=== PATIENT | female | born 2000 | race Caucasian/White ===

== ENCOUNTER 2021-01-24 10:37 | Outpatient (REF) | payer BC, SELFPAY ==
--- OUTSIDE RECORDS SUMMARY | 2021-01-24 10:55 | XMS_ITS ---
:[address] [facility] [place] Address [address] [place] [address]- Care Team Providers Name Role Phone Elder Unavailable Unavailable Foote Unavailable Unavailable Encounter 09/09/20 - 09/09/20 [facility] [place] [address] [place] [address]- Attending Physician: KARLA Cobos Admitting Physician: KARLA Cobos Referring Physician: [id number] -SELF-REFERRED, Problem List Condition Effective Dates Status Health Status Informant Bloating(Confirmed) Active Anxiety(Confirmed) Active Lactose intolerance(Confirmed) Active Well adolescent visit(Confirmed) Active Allergies, Adverse Reactions, Alerts Substance Reaction Severity Status penicillin Active lactose intolerance Active Medications imiquimod 5% topical cream 1 appl, Apply to warts qhs and cover with a bandaid, TOP, Nightly, X 16 weeks, # 24 ea, 1 Refill(s),Pharmacy: [facility], Rx or Hx Med, 160, 06/26/20 10:29:00 EST, cm, Height/Length Dosing, 55.7, 06/26/20 10:29:00 EST, kg, Weight Dosing Start Date: 06/26/20 Stop Date: 02/05/21 Status: OrderedLexapro 10 mg oral tablet mg tab, PO, Daily, 0 Refill(s), Rx or Hx Med Start Date: 06/26/20 Status: Orderedmultivitamin Daily, 0 Refill(s), Rx or Hx Med Start Date: 06/26/20 Status: OrderedNasonex spray, Inhale-nasal, Daily, 0 Refill(s), Rx or Hx Med Start Date: 12/16/16 Stop Date: 01/06/17 Status: Discontinued Immunizations Given and Recorded Vaccine Date Status Refusal Reason human papillomavirus vaccine 12/16/16 Given human papillomavirus vaccine 09/15/15 Recorded meningococcal conjugate vaccine 09/15/15 Recorded meningococcal conjugate vaccine 08/19/11 Recorded hepatitis A pediatric vaccine 12/15/12 Recorded hepatitis A pediatric vaccine 08/19/11 Recorded tetanus/diphth/pertuss (Tdap) adult/adol 08/19/11 Recorde d diphtheria/pertussis, acel/tetanus ped 09/26/03 Recorded diphtheria/pertussis, acel/tetanus ped 12/02/00 Recorded diphtheria/pertussis, acel/tetanus ped1 99 Recorded diphtheria/pertussis, acel/tetanus ped 99 Recorded diphtheria/pertussis, acel/tetanus ped 99 Recorded poliovirus vaccine, inactivated 09/26/03 Recorded poliovirus vaccine, inactivated2 12/02/00 Recorded poliovirus vaccine, inactivated 99 Recorded poliovirus vaccine, inactivated 99 Recorded poliovirus vaccine, inactivated 99 Recorded measles/mumps/rubella virus vaccine 09/26/03 Recorded measles/mumps/rubella virus vaccine 09/12/00 Recorded haemophilus b conj (PRP-OMP) vaccine 05/01/03 Recorded haemophilus b conj (PRP-OMP) vaccine 99 Recorded haemophilus b conj (PRP-OMP) vaccine 99 Recorded haemophilus b conj (PRP-OMP) vaccine 99 Recorded pneumococcal 13-valent vaccine 09/12/01 Recorded varicella virus vaccine 09/12/00 Recorded hepatitis B pediatric vaccine 02/03/00 Recorded hepatitis B pediatric vaccine 99 Recorded hepatitis B pediatric vaccine 99 Recorded 1Result Comment: [01/03/2018 Uncharted] [id number] Comment: [01/03/2018 Uncharted] duplicate Procedures Procedure Date Related Diagnosis Body Site Status ingrown toe nail removal 03/27/20 Com pleted Social History Social History Type Response Tobacco/Nicotine Use: Denies. Smoking Status Never smoker Sex
--- OUTSIDE RECORDS SUMMARY | 2021-01-24 10:55 | XMS_ITS ---
:2000 Author Organization [facility] [place] Address [address] [place] - Care Team Providers Name Role Phone Elder Unavailable Unavailable Foote Unavailable Unavailable Encounter 11/19/20 - 11/19/20 [facility] [place] [address] [place] [address]- Attending Physician: Kristina Mahmood MD Admitting Physician: Kristina Mahmood MD Referring Physician: [id number] -SELF-REFERRED, Problem List Condition Effective Dates Status [...] vaccine 99 Recorded 1Result Comment: [01/03/2018 Uncharted] [id number] Comment: [01/03/2018 Uncharted] duplicate Procedures Procedure Date Related Diagnosis Body Site Status ingrown toe nail removal 03/27/20 Com pleted Social History Social History Type Response Tobacco/Nicotine Use: Denies. Smoking Status Never smoker Sex
--- OUTSIDE RECORDS SUMMARY | 2021-01-24 10:55 | XMS_ITS | Clinical Summary ---
:2000 Author Organization [facility] [place] [address] Care Team Providers Name Role Phone Unavailable Primary Care Provider Unavailable Social History Tobacco Use Types Packs/Day Years Used Date Never Assessed Sex Assigned at Date Recorded Not on file Plan of Treatment Not on file
--- OUTSIDE RECORDS SUMMARY | 2021-01-24 10:55 | XMS_ITS ---
:2000 Author Care Team Providers Name Role Phone Luz Montes Primary Care Provider Unavailable Allergies Code Code System Name Reaction Severity Status Onset Dairy ? ? Active ? Penicillins Garcia-Murphy ? Active ? on Syndrome Notes: Dairy (Active) Medications Name Status Start Date Stop Date ? ? azithromycin 1 gram oral packet Active ? Not available Take 1 g by oral route. azithromycin 500 mg tablet Active ? Not a vailable doxycycline hyclate 100 mg capsule Active ? Not available escitalopram 10 mg tablet Active ? Not av ailable Fluzone Quad (PF) 60 mcg (15 mcg x 4)/0.5 mL IM syring e Active ? Not available PHARMACY ADMINISTERED Gianvi (28) 3 mg-0.02 mg tablet Active ? Not available imiquimod 5 % topical cream packet Active ? Not available Lexapro Active ? Not available Liletta 20.1 mcg/24 hrs (6 yrs) 52 mg intrauterine device Active ? Not available Take by intrauterine route. mupirocin 2 % topical ointment Active ? N ot available Notes: Liletta 19.5 mcg/24 hrs ( 5 yrs) 52 mg(Active): Problems Name Status Onset Date Source ? Major Depressive Disorder Active 05/31/2020 ? Generalized Anxiety Disorder Active 05/31/2020 ? Migraine Active 05/31/2020 ? Recurrent Urinary Tract Infection Active 05/31/2020 ? Injury of Lung Active 05/31/2020 ? Polycystic Ovary Syndrome Active 05/31/2020 ? Chlamydial Infection Active 06/08/2020 ? Covid-19 Active 07/01/2020 ? Procedures Date Name Performed by ? ? Procedure on Ear Information not avai lable Notes: Tube ? Insertion of Intrauterine Contraceptive Device Information not available Notes: liletta ? Injection of Collagen Information not av ailable Notes: Collagen Injections Ear tubesinsertion 1999 IUD insertion 06/13/2018 Results Lab Results Date Name Specimen Result Interpretation Description Value Range Status Address ? 07/21/2020 CT + NG RNA, Cervix ? Chlamydia negative negative Final [facility] PCR, Trachomatis, ([facility]): Unspecified [place]EL[place] [address], Specimen [place] ? ? Cervix ? Neisseria negative negative Final [facility] Gonorrhoeae, ([facility]): NELSY [address], [place] 06/23/2020 No Test ? . comment ? Final [facility] [address], [place] ? ? ? Dear Doctor, comment ? Final [facility] ([facility] n): [address], [place] 06/23/2020 Chlamydia Cervix ? Chlamydia tnp ? Cancel [facility] Trachomatis, Trachomatis led ([place]): Culture, Culture [address], Unspecified [place] Specimen 06/23/2020 CT RNA, Qual, AB Chlamydia positive negativ e Final [facility] PCR, NO Trachomatis, ([facility]): Unspecified RM NELSY [address], Specimen [place] 06/23/2020 Written ? Written comment ? Final [facility] Authorization Authorization ([place]): [address], [place] 06/03/2020 HIV 1+2 AB + Blood ? HIV Screen non non Fi nal [facility] HIV 1 P24 Ag, venous 4TH reactive reactive ([place]): Qualitative Generation [address], Immunoassay, Wrfx [facility] Serum 06/03/2020 RPR (Rapid Blood ? Rpr non non Final [facility] Plasma venous reactive reactive ([facility]): [place]), [address], Serum [place] 06/03/2020 Hepatitis C Blood ? HCV Ab <0.1 s/co 0.0-0.9 Fin al [facility] Ab, venous ratio s/co ([facility]): Pvpxap-fl-pfx ratio [address], off, Serum or [facility] Plasma ? ? Blood ? Comment: comment ? Final [facility] venous ([facility] n): [address], [place] 06/03/2020 HBsAg Blood ? Hbsag Screen negative negative Fi nal [facility] (Hepatitis B venous ([facility]): Surface Ag), [address], EIA, Serum [facility] [place] 06/03/2020 Pap, IG + CERVIX ? Interpretati nilm ? Fin al [facility] Reflex hr HPV on ([facility]oll[facility]): [address], [place] ? ? CERVIX ? Category: nil ? Final [facility] [address], [place] ? ? CERVIX ? Adequacy: endo ? Final [facility] [address], [place] ? ? CERVIX ? Clinician comment ? Final [facility] Provided ([facility]): ICD10: [address], [place] ? ? CERVIX ? Performed comment ? Final [facility] by: [facility] [address], [place] ? ? CERVIX ? Note: comment ? Final [facility] ([facility] [address], [place] ? ? CERVIX ? Test comment ? Final [facility] Methodology: ([facility]): [address], [place] ? ? CERVIX ? . comment ? Final [facility] ([facility] [address], [place] ? ? CERVIX AB Chlamydia, positive negative Final [facility] NO Nuc. Acid Amp ([place]): RM [address], [place] ? ? CERVIX ? Gonococcus, negative negative Final [facility] Nuc. Acid Amp ([place]): [address], [place] Past Encounters 07/21/2020 Chlamydial Infection Luz Montes MD: [address], [place] [address], Ph. 06/23/2020 Chlamydial Infection Luz Montes MD: [address], [place] [address], Ph. 06/03/2020 Gynecologic Examination; Screening for M alignant Neoplasm of Cervix; Venereal Disease Screening; Family History of Breast Cancer Luz Montes MD: [address], [place] [address], Ph. Social History Tobacco Smoking Status Never Smoker Vaccine List None recorded. Plan of Care Reminders Provider Appointments None ? ? recorded. Lab None ? ? recorded. Referral None ? ? recorded. Procedures None ? ? recorded. Surgeries None ? ? recorded. Imaging None ? ? recorded. Vitals 07/21/2020 01:15PM CHIP MIXER EST Height Weight BMI Blood Pressure 5 ft 3 in 126 lbs 22.3 kg/m2 100/60 mm[Hg] 06/23/2020 03:15PM CHIP MIXER EST Height Weight BMI Blood Pressure 5 ft 3 in 123 lbs 21.8 kg/m2 100/60 mm[Hg] 06/03/2020 02:45PM CHIP MIXER EST Height Weight BMI Blood Pressure 5 ft 3 in 122.6 lbs 21.7 kg/m2 100/60 mm[Hg] 07/13/2019 Height Weight Blood Pressure 5 ft 3 in 121.81 lbs 108/76 mm[Hg]
--- OUTSIDE RECORDS SUMMARY | 2021-01-24 10:55 | XMS_ITS ---
:[address] [facility] [place] Address [address] [place] [address]- Care Team Providers Name Role Phone Elder Unavailable Unavailable Foote Unavailable Unavailable Encounter 06/26/20 - 06/26/20 [facility] [place] [address] [place] [address]- Encounter Diagnosis Benign nevus (Discharge Diagnosis) - 06/26/20 Plantar wart (Discharge Diagnosis) - 06/26/20 Attending Physician: KARLA Cobos Admitting Physician: KARLA Cobos Referring Physician: [id number] -SELF-REFERRED, Problem List Condition Effective Dates Status [...] Date: 12/16/16 Stop Date: 01/06/17 Status: Discontinued Assessment and Plan Future AppointmentsAppointment Date:07/29/2020 01:20:00 PM Scheduled Provider:KARLA Cobos Location:[facility] [place] Appointment Type:Return Appointment Immunizations Given and Recorded Vaccine Date Status [...] vaccine 99 Recorded 1Result Comment: [01/03/2018 Uncharted] [id number] Comment: [01/03/2018 Uncharted] duplicate Procedures Procedure Date Related Diagnosis Body Site Status ingrown toe nail removal 10/15/20 Com pleted Social History Social History Type Response Tobacco/Nicotine Use: Denies. Smoking Status Never smoker Sex Vital Signs Most recent to oldest [Reference Range]: 1 Temperature Temporal [36.3-37.8 DegC] 36.4 DegC (06/26/20 10:29 AM) Peripheral Pulse Rate [60-100 bpm] 85 bpm (06/26/20 10:29 AM) Respiratory Rate [12-20 BR/min] 18 BR/min (06/26/20 10:29 AM) Blood Pressure [90-140/60-90 mmHg] 99/64 mmHg (06/26/20 10:29 AM) BP Extremity, Automated Left upper extremity (06/26/20 10:29 AM) Patient Position BP Sitting (06/26/20 10:29 AM) Type of Visit Telehealth In Person (06/26/20 10:29 AM) Height/Length Dosing [129-213 cm] 160 cm (06/26/20 10:29 AM) Body Mass Index Dosing 21.76 kg/m2 (06/26/20 10:29 AM) Weight Dosing 55.7 kg (06/26/20 10:29 AM)
--- OUTSIDE RECORDS SUMMARY | 2021-01-24 10:55 | XMS_ITS | Encounter Summary ---
:2000 Author Organization [facility] [place] [address] Care Team Providers Name Role Phone Unavailable Primary Care Provider Unavailable Encounter Details Date Type Department Care Team Description 09/14/2011 [facility], Emergency Department [address] [facility] [place], [place] [address] Dept [phone] [place], [place] [address] (Wo rk) Social History Tobacco Use Types Packs/Day Years Used Date Never Assessed Sex Assigned at Date Recorded Not on file documented as of this encounter Plan of Treatment Not on filedocumented as of this encounter Procedures Procedure Name Priority Date/Time Associated Diagnosis Comme nts XR WRIST RT MIN 3 Routine 09/14/2011 7:25 PM Res ults for this VWS EDT procedure are i n the results section. XR WRIST LT MIN 3 Routine 09/14/2011 7:18 PM Res ults for this VWS EDT procedure are i n the results section. documented in this encounter Results XR Wrist Right Minimum 3 VWS (09/14/2011 7:25 PM EDT) Anatomical Region Laterality Modality Wrist Radiographic Imaging Specimen Narrative [facility] - 09/14/2011 7:40 PM EDT INDICATION: ?Bilateral wrist pain status post fall. COMPARISON: ?None. FINDINGS: Right wrist: Three images including AP, oblique, lateral views. Skeletally immature patient. There is priya ny irregularity of the distal radial metaphysis with cortical buckling concerning for nondisplaced distal radius fracture. There is soft ti ssue swelling at the wrist most pronounced along the palmar aspect. There is mild lucency seen along the ulnar styloid which may be dev elopmental, correlate with site of pain. Left wrist: 3 images including AP, obliq ue, and lateral views. Skeletally immature patient. No definite acute fracture or dislocation. Joint spaces and soft tissu es are unremarkable. IMPRESSION: 1. Findings concerning for nondisplaced fracture of the right distal radius, as described above. ? 2. No definite acute fracture or disloca tion of the left wrist. If there is concern for injury, then sugges t immobilization and repeat imaging in 10 to 14 days or cross-sectio nal imaging as indicated. Procedure Note Ac Iglesias MD - 11/02/2012 INDICATION: Bilateral wrist pain stat us post fall. COMPARISON: None. FINDINGS: Right wrist: Three images including AP, oblique, lateral views. Skeletally immature patient. There is priya ny irregularity of the distal radial metaphysis with cortical buckling concerning for nondisplaced distal radius fracture. There is soft ti ssue swelling at the wrist most pronounced along the palmar aspect. There is mild lucency seen along the ulnar styloid which may be dev elopmental, correlate with site of pain. Left wrist: 3 images including AP, obliq ue, and lateral views. Skeletally immature patient. No definite acute fracture or dislocation. Joint spaces and soft tissu es are unremarkable. IMPRESSION: 1. Findings concerning for nondisplaced fracture of the right distal radius, as described above. 2. No definite acute fracture or disloca tion of the left wrist. If there is concern for injury, then sugges t immobilization and repeat imaging in 10 to 14 days or cross-sectio nal imaging as indicated. Performing Organization Address City/State/ZIP Code Phon e Number [facility] P[facility] [employer] PACS XR Wrist Left Minimum 3 VWS (09/14/2011 7:18 PM EDT) Anatomical Region Laterality Modality Wrist Radiographic Imaging Specimen Narrative [facility] - 09/14/2011 7:40 PM EDT INDICATION: ?Bilateral wrist pain status post fall. COMPARISON: ?None. FINDINGS: Right wrist: Three images including AP, oblique, lateral views. Skeletally immature patient. There is priya ny irregularity of the distal radial metaphysis with cortical buckling concerning for nondisplaced distal radius fracture. There is soft ti ssue swelling at the wrist most pronounced along the palmar aspect. There is mild lucency seen along the ulnar styloid which may be dev elopmental, correlate with site of pain. Left wrist: 3 images including AP, obliq ue, and lateral views. Skeletally immature patient. No definite acute fracture or dislocation. Joint spaces and soft tissu es are unremarkable. IMPRESSION: 1. Findings concerning for nondisplaced fracture of the right distal radius, as described above. ? 2. No definite acute fracture or disloca tion of the left wrist. If there is concern for injury, then sugges t immobilization and repeat imaging in 10 to 14 days or cross-sectio nal imaging as indicated. Procedure Note Ac Iglesias MD - 11/02/2012 INDICATION: Bilateral wrist pain stat us post fall. COMPARISON: None. FINDINGS: Right wrist: Three images including AP, oblique, lateral views. Skeletally immature patient. There is priya ny irregularity of the distal radial metaphysis with cortical buckling concerning for nondisplaced distal radius fracture. There is soft ti ssue swelling at the wrist most pronounced along the palmar aspect. There is mild lucency seen along the ulnar styloid which may be dev elopmental, correlate with site of pain. Left wrist: 3 images including AP, obliq ue, and lateral views. Skeletally immature patient. No definite acute fracture or dislocation. Joint spaces and soft tissu es are unremarkable. IMPRESSION: 1. Findings concerning for nondisplaced fracture of the right distal radius, as described above. 2. No definite acute fracture or disloca tion of the left wrist. If there is concern for injury, then sugges t immobilization and repeat imaging in 10 to 14 days or cross-sectio nal imaging as indicated. Performing Organization Address City/State/ZIP Code Phon e Number [facility] P[facility] [employer] PACS documented in this encounter Visit Diagnoses Not on filedocumented in this encounter
--- OUTSIDE RECORDS SUMMARY | 2021-01-24 10:55 | XMS_ITS ---
:2000 Author Organization [facility] [place] Address [address] [place] [address]- Care Team Providers Name Role Phone Elder Unavailable Unavailable Foote Unavailable Unavailable Encounter 07/29/20 - 07/29/20 [facility] [place] [address] [place] [address]- Encounter Diagnosis Plantar wart (Discharge Diagnosis) - 07/29/20 Attending Physician: KARLA Cobos Admitting Physician: KARLA Cobos Referring Physician: [id number] -SELF-REFERRED, Problem List Condition Effective Dates Status [...] Status: Discontinued Assessment and Plan Future AppointmentsAppointment Date:09/09/2020 01:20:00 PM Scheduled Provider:KARLA Cobos Location:[facility] [place] Appointment Type:Return Appointment Immunizations Given and Recorded [...] vaccine 99 Recorded 1Result Comment: [01/03/2018 Uncharted] [id number] Comment: [01/03/2018 Uncharted] duplicate Procedures Procedure Date Related Diagnosis Body Site Status ingrown toe nail removal 10/15/20 Com pleted Social History Social History Type Response Tobacco/Nicotine Use: Denies. Smoking Status Never smoker Sex Vital Signs Most recent to oldest [Reference Range]: 1 Temperature Temporal [36.3-37.8 DegC] 36.4 DegC (07/29/20 1:16 PM) Peripheral Pulse Rate [60-100 bpm] 76 bpm (07/29/20 1:16 PM) Blood Pressure [90-140/60-90 mmHg] 103/65 mmHg (07/29/20 1:16 PM) BP Extremity, Automated Right upper extremity (07/29/20 1:16 PM) Patient Position BP Sitting (07/29/20 1:16 PM) Type of Visit Telehealth In Person (07/29/20 1:16 PM) Height/Length Dosing [129-213 cm] 159 cm (07/29/20 1:16 PM) Body Mass Index Dosing 22.51 kg/m2 (07/29/20 1:16 PM) Weight Dosing 56.9 kg (07/29/20 1:16 PM) Hospital Discharge Instructions Patient Dfkboollc35/16/2021 13:18:05Smoking Cessation, Tips For SuccessSmoking Cessation, Tips for Success YOU CAN QUIT SMOKING If you are ready to quit smoking, congratulations! You have chosen to help yourself be healthier. Cigarettes bring nicotine, tar, carbon monoxide, and other irritants into your body. Your lungs, heart,and blood vessels will be able to work better without these poisons. There are many different ways to quit smoking. Nicotine gum, nicotine patches, a nicotine inhaler, or nicotine nasal spray can help with physical craving. Hypnosis, support groups, and medicines help break the habit of smoking. Here are some tips to help you quit for good. ??? Throw away all cigarettes. ??? Clean and remove all ashtrays from your home, work, and car. ??? On a card, write down your reasons for quitting. Carry the card with you and read it when you get the urge to smoke. ??? Cleanse your body of nicotine. Drink enough water and fluids to keep your urine clear or pale yellow. Do this after quitting to flush the nicotine from your body. ??? Learn to predict your moods. Do not let a bad situation be your excuse to have a cigarette. Some situations in your life might tempt you into wanting a cigarette. ??? Never have just one cigarette. It leads to wanting another and another. Remind yourself of your decision to quit. ??? Change habits associated with smoking. If you smoked while driving or when feeling stressed, try other activities to replace smoking. Stand up when drinking your coffee. [place] your teeth after eating. Sit in a different chair when you read the paper. Avoid alcohol while trying to quit, and try todrink fewer caffeinated beverages. Alcohol and caffeine may urge you to smoke. ??? Avoid foods and drinks that can trigger a desire to smoke, such as sugary or spicy foods and alcohol. ??? Ask people who smoke not to smoke around you. ??? Have something planned to do right after eating or having a cup of coffee. Take a walk or exercise to perk you up. This will help to keep you from overeating. ??? Try a relaxation exercise to calm you down and decrease your stress. Remember, you may be tenseand nervous for the first 2 weeks after you quit, but this will pass. ??? Find new activities to keep your hands busy. Play with a pen, coin, or rubber band. Doodle or draw things on paper. ??? [place] your teeth right after eating. This will help cut down on the craving for the taste of tobacco after meals. You can try mouthwash, too. ??? Use oral substitutes, such as lemon drops, carrots, a cinnamon stick, or chewing gum, in place of cigarettes. Keep them handy so they are available when you have the urge to smoke. ??? When you have the urge to smoke, try deep breathing. ??? Designate your home as a nonsmoking area. ??? If you are a heavy smoker, ask your caregiver about a prescription for nicotine chewing gum. Itcan ease your withdrawal from nicotine. ??? Reward yourself. Set aside the cigarette money you save and buy yourself something nice. ??? Look for support from others. Join a support group or smoking cessation program. Ask someone athome or at work to help you with your plan to quit smoking. ??? Always ask yourself, Do I need this cigarette or is this just a reflex? Tell yourself, Today, I choose not to smoke, or I do not want to smoke. You are reminding yourself of your decision toquit, even if you do smoke a cigarette. HOW WILL I FEEL WHEN I QUIT SMOKING? The benefits of not smoking start within days of quitting. ??? You may have symptoms of withdrawal because your body is used to nicotine (the addictive substance in cigarettes). You may crave cigarettes, be irritable, feel very hungry, cough often, get headaches, or have difficulty concentrating. ??? The withdrawal symptoms are only temporary. They are strongest when you first quit but will go away within 10 to 14 days. ??? When withdrawal symptoms occur, stay in control. Think about your reasons for quitting. Remind yourself that these are signs that your body is healing and getting used to being without cigarettes. ??? Remember that withdrawal symptoms are easier to treat than the major diseases that smoking can cause. ??? Even after the withdrawal is over, expect periodic urges to smoke. However, these cravings are generally short-lived and will go away whether you smoke or not. Do not smoke! ??? If you relapse and smoke again, do not lose hope. Most smokers quit 3 times before they are successful. ??? If you relapse, do not give up! Plan ahead and think about what you will do the next time you get the urge to smoke. LIFE A NONSMOKER: MAKE IT FOR A MONTH, MAKE IT FOR LIFE Day 1: Hang this page where you will see it every day. Day 2: Get rid of all ashtrays, matches, and lighters. Day 3: Drink water. Breathe deeply between sips. Day 4: Avoid places with smoke-filled air, such as bars, clubs, or the smoking section of restaurants. Day 5: Keep track of how much money you save by not smoking. Day 6: Avoid boredom. Keep a good book with you or go to the movies. Day 7: Reward yourself! One week without smoking! Day 8: Make a dental appointment to get your teeth cleaned. Day 9: Decide how you will turn down a cigarette before it is offered to you. Day 10: Review your reasons for quitting. Day 11: Distract yourself. Stay active to keep your mind off smoking and to relieve tension. Take a walk, exercise, read a book, do a crossword puzzle, or try a new hobby. Day 12: Exercise. Get off the bus before your stop or use stairs instead of escalators. Day 13: Call on friends for support and encouragement. Day 14: Reward yourself! Two weeks without smoking! Day 15: Practice deep breathing exercises. Day 16: Bet a friend that you can stay a nonsmoker. Day 17: Ask to sit in nonsmoking sections of restaurants. Day 18: Hang up No Smoking signs. Day 19: Think of yourself as a nonsmoker. Day 20: Each morning, tell yourself you will not smoke. Day 21: Reward yourself! Three weeks without smoking! Day 22: Think of smoking in negative ways. Remember how it stains your teeth, gives you bad breath, and leaves you short of breath. Day 23: Eat a nutritious breakfast. Day 24:Do not relive your days as a smoker. Day 25: Hold a pencil in your hand when talking on the telephone. Day 26: Tell all your friends you do not smoke. Day 27: Think about how much better food tastes. Day 28: Remember, one cigarette is one too many. Day 29: Take up a hobby that will keep your hands busy. Day 30: Congratulations! One month without smoking! Give yourself a big reward. Your caregiver can direct you to community resources or hospitals for support, which may include: ??? Group support. ??? Education. ??? Hypnosis. ??? Subliminal therapy. Document Released: 02/25/2005 Document Revised: 08/21/2012 Document Reviewed: 03/16/2010 ExitCare?? Patient Information ??2013 [employer].
--- OUTSIDE RECORDS SUMMARY | 2021-01-24 10:55 | XMS_ITS | Encounter Summary ---
:2000 Author Organization [facility] [place] [address] Care Team Providers Name Role Phone Unavailable Primary Care Provider Unavailable Encounter Details Date Type Department Care Team Description 06/03/2010 Emergency [facility] Faizan Bowen MD Emergency Department [facility] [address]st [place] [id number] Social History Tobacco Use Types Packs/Day Years Used Date Never Assessed Sex Assigned at Date Recorded Not on file documented as of this encounter Plan of Treatment Not on filedocumented as of this encounter Visit Diagnoses Not on filedocumented in this encounter
--- OUTSIDE RECORDS SUMMARY | 2021-01-24 10:55 | XMS_ITS ---
:2000 Author Care Team Providers Name Role Phone Bryanna Dean Primary Care Provider Unavailable Allergies Code Code System Name Reaction Severity Status Onset NKDA ? Medications Name Status Start Date Stop Date ? ? doxycycline hyclate 100 mg tablet Completed ? 12/30/2017 Lo Loestrin Fe 1 mg-10 mcg (24)/10 mcg (2) tablet Active ? Not available Take 1 tablet every day by oral route. meclizine 25 mg tablet Active ? Not avail able Take 1 tablet 3 times a day by oral route as needed. nitrofurantoin Completed ? 12/30/2017 monohydrate/macrocrystals 100 mg capsule sulfamethoxazole 800 mg-trimethoprim Completed ? 12/30/2017 160 mg tablet Problems Name Status Onset Date Source ? History of Hypotension Active 12/30/2017 ? Procedures Date Name Performed by ? ? None Reported Information not avai lable Results Lab Results Date Name Specimen Result Interpretation Description Value Range Status Address ? 03/08/2020 CBC W/ Auto ? Wbc 7.4 3.4-10.8 Final [facility] Diff x10e3/uL x[facility]e3[facility]uL [facility] [address] [facility] ? ? ? Rbc 4.27 3.77-5.28 Final [facility] x10e6/uL x10e6/uL [facility] [address] [facility] ? ? ? Hemoglobi 14.2 g/dL 11.1-15.9 Final [facility] n g/dL ([facility] n): [address] [facility] ? ? ? Hematocri 40.4 % 34.0-46.6 Final Lab oscar t % ([facility] n): [address] [facility] ? ? ? Mcv 95 fL 79-97 fL Final [facility] ([facility] n): [address] [facility] ? ? Above Mch 33.3 pg 26.6-33.0 Final [facility] p High pg ([facility] n): Normal 7 [facility] ? ? ? Mchc 35.1 g/dL 31.5-35.7 Final [facility] orp g/dL ([facility] n): [address], [place] ? ? Below Rdw 11.5 % 11.7-15.4 Final [facility] Low % ([facility] n): Normal [address], [place] ? ? ? Platelets 242 150-450 Final [facility] rp x10e3/uL x10e3/uL ([facility]): [address], [place] ? ? ? Neutrophi 65 % not Final [facility] p ls estab. % ([place] [facility]): [address], [place] ? ? ? Lymphs 23 % not Final [facility] estab. % ([place]): [address], [place] ? ? ? Monocytes 10 % not Final [facility] p estab. % ([place]): [address], [place] ? ? ? Eos 1 % not Final [facility] estab. % ([place]): [address], [place] ? ? ? Basos 1 % not Final [facility] estab. % ([place]): [address], [place] ? ? ? Immature agricultural equipment design engineer ? Cancelled [facility] orp Cells ([facility] n): [address], [place] ? ? ? Neutrophi 4.8 1.4-7.0 Final [facility] rp ls x10e3/uL x10e3/uL ([facility]): (Absolute) [address], [place] ? ? ? Lymphs 1.7 0.7-3.1 Final [facility] (Absolute) x10e3/uL x10e3/uL ([facility]): [address], [place] ? ? ? Monocytes 0.7 0.1-0.9 Final [facility] rp (absolute) x10e3/uL x10e3/uL ([facility]): [address], [place] ? ? ? Eos 0.1 0.0-0.4 Final [facility] (Absolute) x10e3/uL x10e3/uL ([facility] [address], [place] ? ? ? Baso 0.1 0.0-0.2 Final [facility] (Absolute) x10e3/uL x10e3/uL ([facility]): [address], [place] ? ? ? Immature 0 % not Final [facility] Granulocyt estab. % (Christal reza): es [address] [facility], [place] ? ? ? Immature 0.0 0.0-0.1 Final [facility] p Grans x10e3/uL x10e3/uL (Jessica delgado): (Abs) [address] [facility], [place] ? ? ? Nrbc agricultural equipment design engineer ? Cancelled [facility] ([facility]): [address] [facility] [place] ? ? ? Hematolog agricultural equipment design engineer ? Cancelled Lab oscar y ([facility]): Comments: [address] [facility] 03/08/2020 CMP, Serum ? Glucose 90 mg/dL 65-99 Final [facility] or Plasma mg/dL [facility] [address] [facility] [place] ? ? ? Bun 11 mg/dL 6-20 Final [facility] mg/dL ([facility]): [address] [facility] [place] ? ? ? Creatinin 0.75 0.57-1.00 Final Lab oscar e mg/dL mg/dL ([facility]): [address] [facility], [place] ? ? ? eGFR If 115 >59 Final [facility] Nonafricn mL/min/1. mL/min/1. ( [place]): AM 73 73 [address] [facility], [place] ? ? ? eGFR If 133 >59 Final [facility] Africn AM mL/min/1. mL/min/1. ( [place]): 73 73 [address] [facility] ? ? ? BUN/creat 15 9-23 Final [facility] p inine ([facility]): Ratio [address] [facility], [place] ? ? Above Sodium 147 134-144 Final [facility] High mmol/L mmol/L ([facility]): Normal [address] [facility] ? ? ? Potassium 3.9 3.5-5.2 Final [facility] rp mmol/L mmol/L ([facility]): [address] [facility] ? ? ? Chloride 103 96-106 Final [facility] mmol/L mmol/L ([facility]): [address] [facility] ? ? ? Carbon 24 mmol/L 20-29 Final [facility] p Dioxide, mmol/L ([facility]): Total [address] [facility] ? ? ? Calcium 9.9 mg/dL 8.7-10.2 Final Lab oscar mg/dL ([facility] n): [address], [place] ? ? ? Protein, 7.1 g/dL 6.0-8.5 Final [facility] orp Total g/dL ([facility] n): [address], [place] ? ? ? Albumin 4.9 g/dL 3.9-5.0 Final [facility] rp g/dL ([facility] n): [address], [place] ? ? ? Globulin, 2.2 g/dL 1.5-4.5 Final Lab oscar Total g/dL ([facility] n): [address], [place] ? ? ? A/g Ratio 2.2 1.2-2.2 Final [facility] rp ([facility] n): [address], [place] ? ? ? Bilirubin 0.6 mg/dL 0.0-1.2 Final [facility] , Total mg/dL ([facility] on): [address], [place] ? ? ? Alkaline 89 IU/L 39-117 Final [facility] p Phosphatas IU/L ([facility]): e [address], [place] ? ? ? Ast 20 IU/L 0-40 IU/L Final [facility] p (Sgot) ([facility] n): [address], [place] ? ? ? Alt 9 IU/L 0-32 IU/L Final [facility] (Sgpt) ([facility] n): [address] [facility] [place] 03/08/2020 Urinalysis, ? Specific 1.008 1.005-1.0 Fi nal [facility] Complete [place] 30 [facility] [address] [facility] [place] ? ? ? Ph 6.5 5.0-7.5 Final [facility] ([facility] n): [address], [place] ? ? ? Urine-col yellow yellow Final [facility] p or ([facility] n): [address], [place] ? ? ? Appearanc clear clear Final [facility] p e ([facility] n): [address], [place] ? ? ? WBC negative negative Final [facility] p Esterase ([facility]): [address], [place] ? ? ? Protein negative negative/ Final Lab oscar trace ([facility] n): [address], [place] ? ? ? Glucose negative negative Final Lab[facility] orp ([facility]): [address] [facility] [place] ? ? ? Ketones negative negative Final [facility] orp ([facility]): [address] [facility] [place] ? ? ? Occult negative negative Final [facility] rp Blood ([facility] n): [address] [facility] [place] ? ? ? Bilirubin negative negative Final [facility] ([facility]): [address] [facility] [place] ? ? ? Urobilino 0.2 mg/dL 0.2-1.0 Final [facility] gen,semi-q mg/dL ([facility]): n [address] [facility], [place] ? ? ? Nitrite, negative negative Final Lab oscar Urine ([facility]): [address] [facility] [place] ? ? ? Microscop comment ? Final [facility] rp ic ([facility]): Examinatio [address], n [place] 03/08/2020 Lipid Panel, ? Cholester 163 mg/dL 100-199 Final [facility] Serum ol, Total mg/dL ([facility]): [address] [facility] ? ? ? Triglycer 99 mg/dL 0-149 Final [facility] orp ides mg/dL ([facility]): [address] [facility] [place] ? ? ? HDL 60 mg/dL >39 mg/dL Final [facility] rp Cholestero ([facility]): l [address] [facility] ? ? ? VLDL 18 mg/dL 5-40 Final [facility] Cholestero mg/dL ([facility]): l Александр [address] [facility] ? ? ? LDL Chol 85 mg/dL 0-99 Final [facility] rp Calc ([facility]) mg/dL ([facility]): [address] [facility] ? ? ? Comment: agricultural equipment design engineer ? Cancelled [facility] orp ([facility]): [address] [facility] 03/08/2020 TSH, ? Tsh 0.723 0.450-4.5 Final Lab oscar Ultra-sensit uIU/mL 00 uIU/mL ( [place]): luann, Serum [address] [facility] 12/30/2017 CBC W/ Auto ? Wbc 5.5 3.4-10.8 Final [facility] Diff x10e3/uL x10e3/uL ([facility]): [address], [place] ? ? ? Rbc 4.45 3.77-5.28 Final [facility] x10e6/uL x10e6/uL ([facility] [address], [place] ? ? ? Hemoglobi 14.1 g/dL 11.1-15.9 Final [facility] n g/dL ([facility] n): [address], [place] ? ? ? Hematocri 42.3 % 34.0-46.6 Final Lab oscar t % ([facility] n): [address], [place] ? ? ? Mcv 95 fL 79-97 fL Final [facility] ([facility] n): [address], [place] ? ? ? Mch 31.7 pg 26.6-33.0 Final [facility] p pg ([facility] n): [address], [place] ? ? ? Mchc 33.3 g/dL 31.5-35.7 Final [facility] orp g/dL ([facility] n): [address], [place] ? ? ? Rdw 13.5 % 12.3-15.4 Final [facility] % ([facility] n): [address], [place] ? ? ? Platelets 282 150-379 Final [facility] rp x10e3/uL x10e3/uL ([facility] [address], [place] ? ? ? Neutrophi 56 % not Final [facility] p ls estab. % ([facility] ton): [address], [place] ? ? ? Lymphs 30 % not Final [facility] estab. % ([facility]): [address], [place] ? ? ? Monocytes 10 % not Final [facility] p estab. % ([facility]): [address], [place] ? ? ? Eos 2 % not Final [facility] estab. % ([facility]): [address], [place] ? ? ? Basos 1 % not Final [facility] estab. % ([facility]): [address], [place] ? ? ? Immature agricultural equipment design engineer ? Cancelled [facility] orp Cells ([facility] n): [address], [place] ? ? ? Neutrophi 3.1 1.4-7.0 Final [facility] rp ls x10e3/uL x10e3/uL ([facility] (Absolute) [address], [place] ? ? ? Lymphs 1.6 0.7-3.1 Final [facility] (Absolute) x10e3/uL x10e3/uL ([facility]): [address] [facility] [place] ? ? ? Monocytes 0.5 0.1-0.9 Final [facility] rp (absolute) x10e3/uL x10e3/uL ([facility]): [address] [facility], [place] ? ? ? Eos 0.1 0.0-0.4 Final [facility] (Absolute) x10e3/uL x10e3/uL ([facility]): [address] [facility], [place] ? ? ? Baso 0.0 0.0-0.2 Final [facility] (Absolute) x10e3/uL x10e3/uL ([facility]): [address] [facility] [place] ? ? ? Immature 1 % not Final [facility] Granulocyt estab. % ([facility]): es [address] [facility], [place] ? ? ? Immature 0.1 0.0-0.1 Final [facility] p Grans x10e3/uL x10e3/uL ([facility]): (Abs) [address] [facility], [place] ? ? ? Nrbc agricultural equipment design engineer ? Cancelled [facility] ([facility]): [address] [facility] ? ? ? Hematolog agricultural equipment design engineer ? Cancelled Lab oscar y ([facility]): Comments: [address] [facility] 12/30/2017 CMP, Serum ? Glucose 94 mg/dL 65-99 Final [facility] or Plasma mg/dL [facility] [address] [facility] ? ? ? Bun 7 mg/dL 6-20 Final [facility] mg/dL ([facility]): [address] [facility] ? ? ? Creatinin 0.68 0.57-1.00 Final Lab oscar e mg/dL mg/dL ([facility]): [address] [facility] ? ? ? eGFR If 128 >59 Final [facility] Nonafricn mL/min/1. mL/min/1. ( [place]): AM 73 73 [address] [facility] ? ? ? eGFR If 148 >59 Final [facility] Africn AM mL/min/1. mL/min/1. ( [place]): [address], [place] ? ? ? BUN/creat 10 9-23 Final [facility] p inine ([facility]): Ratio [address], [place] ? ? ? Sodium 142 134-144 Final [facility] mmol/L mmol/L ([facility]): [address], [place] ? ? ? Potassium 4.0 3.5-5.2 Final [facility] r[facility] mmol/L mmol/L ([facility]): [address], [place] ? ? ? Chloride 102 96-106 Final [facility] mmol/L mmol/L ([facility]): [address], [place] ? ? ? Carbon 24 mmol/L 20-29 Final [facility] p Dioxide, mmol/L ([facility]): Total [address], [place] ? ? ? Calcium 9.5 mg/dL 8.7-10.2 Final Lab oscar mg/dL ([facility]): [address], [place] ? ? ? Protein, 7.0 g/dL 6.0-8.5 Final [facility] Total g/dL ([facility]): [address], [place] ? ? ? Albumin 4.8 g/dL 3.5-5.5 Final [facility] r[facility] g/dL ([facility]): [address], [place] ? ? ? Globulin, 2.2 g/dL 1.5-4.5 Final Lab oscar Total g/dL ([facility]): [address], [place] ? ? ? A/g Ratio 2.2 1.2-2.2 Final [facility] rp ([facility]): [address], [place] ? ? ? Bilirubin 0.6 mg/dL 0.0-1.2 Final [facility] , Total mg/dL ([facility] on): [address], [place] ? ? ? Alkaline 79 IU/L 43-101 Final [facility] p Phosphatas IU/L ([facility]): e [address], [place] ? ? ? Ast 16 IU/L 0-40 IU/L Final [facility] p (Sgot) ([facility]): [address], [place] ? ? ? Alt 9 IU/L 0-32 IU/L Final [facility] (Sgpt) ([facility]): [address] [facility] [place] 12/30/2017 Urinalysis, ABNORMAL Specific 1.005-1.0 Final [facility] Complete [place] <=1.005 30 ([facility] [address] [facility], [place] ? ? ? Ph 7.5 5.0-7.5 Final [facility] ([facility] n): [address], [place] ? ? ? Urine-col yellow yellow Final [facility] p or ([facility] n): [address], [place] ? ? ? Appearanc clear clear Final [facility] p e ([facility] n): [address], [place] ? ? ? WBC negative negative Final [facility] p Esterase ([facility]): [address] [facility] [place] ? ? ? Protein negative negative/ Final Lab oscar trace ([facility]): [address] [facility], [place] ? ? ? Glucose negative negative Final [facility] orp ([facility] n): [address] [facility], [place] ? ? ? Ketones negative negative Final [facility] orp ([facility] n): [address] [facility], [place] ? ? ABNORMAL Occult 1+ negative Final [facility] Blood ([facility]): [address] [facility], [place] ? ? ? Bilirubin negative negative Final [facility] ([facility]): [address] [facility], [place] ? ? ? Urobilino 0.2 mg/dL 0.2-1.0 Final [facility] gen,semi-q mg/dL ([facility]): n [address] [facility], [place] ? ? ? Nitrite, negative negative Final Lab oscar Urine ([facility]): [address] [facility], [place] ? ? ? Microscop see ? Final [facility] p ic below: ([facility]): Examinatio [address], n [place] ? ? ? Wbc 0-5 /hpf 0 - 5 Final [facility] /hpf ([facility] n): [address] [facility] [place] ? ? ? Rbc 0-2 /hpf 0 - 2 Final [facility] /hpf ([facility] n): [address] [facility], [place] ? ? ? Epithelia 0-10 /hpf 0 - 10 Final Lab oscar l Cells /hpf ([facility]): (Non [address], [place]) [place] ? ? ? Epithelia agricultural equipment design engineer ? Cancelled Lab oscar l Cells ([facility] on): (Renal) [address] [facility], [place] ? ? ? Casts none seen none seen Final [facility] orp /lpf /lpf ([facility] n): [address] [facility], [place] ? ? ? Cast Type agricultural equipment design engineer ? Cancelled Lab oscar ([facility] n): [address] [facility], [place] ? ? ? Crystals agricultural equipment design engineer ? Cancelled Lab[facility] orp ([facility] n): [address] [facility], [place] ? ? ? Crystal agricultural equipment design engineer ? Cancelled [facility] rp Type ([facility] n): [address], [place] ? ? ? Mucus agricultural equipment design engineer ? Cancelled [facility] Threads ([facility] on): [address] [facility], [place] ? ? ? Bacteria few none Final [facility] seen/few ([facility]): [address] [facility], [place] ? ? ? Yeast agricultural equipment design engineer ? Cancelled [facility] ([facility] n): [address] [facility], [place] ? ? ? Trichomon agricultural equipment design engineer ? Cancelled Lab oscar as ([facility] n): [address] [facility], [place] ? ? ? Comment agricultural equipment design engineer ? Cancelled [facility] rp ([facility] n): [address] [facility] 12/30/2017 Lipid Panel, Above Cholester 175 mg/dL 100-169 Final [facility] Serum High ol, Total mg/dL ([facility]): Normal [address] [facility] ? ? Above Triglycer 120 mg/dL 0-89 Final Lab oscar High ides mg/dL ([facility] n): Normal [address] [facility] ? ? ? HDL 56 mg/dL >39 mg/dL Final [facility] Cholestero ([facility]): l [address] [facility] ? ? ? VLDL 24 mg/dL 5-40 Final [facility] Cholestero mg/dL ([facility] l Александр [address] [facility], [place] ? ? ? LDL 95 mg/dL 0-109 Final [facility] Cholestero mg/dL ([facility] l Calc [address] [facility] ? ? ? Comment: agricultural equipment design engineer ? Cancelled Lab[facility] orp ([facility] n): [address] [facility] 12/30/2017 CT + NG + ? Chlamydia negative negative Fi nal [facility] TV, DNA, by NELSY ([facility]): Urine/swab [address], [place] ? ? ? Gonococcu negative negative Final [facility] s by NELSY ([facility]): [address], [place] ? ? ? Trich Vag negative negative Final [facility] by NELSY ([facility]): [address], [place] 12/30/2017 HIV 1+2 AB + ? HIV non non Final [facility] HIV 1 P24 Screen 4TH reactive reactive ([place]): Ag, Generation [address], Qualitative Wrfx Jessica delgado Immunoassay, Serum 12/30/2017 Hepatitis C ? Hep C <0.1 s/co 0.0-0.9 Krupa l [facility] Ab, Virus Ab ratio s/co ([facility]): [id number] ratio [address], toff, Serum Jessica delgado or Plasma 12/30/2017 RPR (Rapid ? Rpr non non Final [facility] Plasma reactive reactive (Jessica delgado): [place]), [address], Serum [place] Past Encounters 03/08/2020 Vertigo; Dizziness; Long-term Drug Thera py; Hypercholesterolemia Marcie Valles PA: [id number] [facility], [place] [id number], Ph. Social History Tobacco Smoking Status Never Smoker Vaccine List None recorded. Plan of Care Patient Instructions follow up if not better Reminders Provider Appointments None recorded. ? ? Lab None recorded. ? ? Referral None recorded. ? ? Procedures None recorded. ? ? Surgeries None recorded. ? ? Imaging None recorded. ? ? Vitals 03/08/2020 03:30PM Sched_Appt Blood Pressure 115/73 mm[Hg] 12/30/2017 09:30AM PHYSICAL Height Weight BMI Blood Pressure 5 ft 3 in 120 lbs 21.3 kg/m2 86/59 mm[Hg]
== END 2021-01-24 10:38 | disposition home or self-care (01) ==
LOC: LBN 10:37
PROVIDERS: Visit Provider Physician Assistant Medical
DX: N72 Inflammatory disease of cervix uteri (principal)
CPT/HCPCS: 87491; 87591; 87480; 87510; 87660

== ENCOUNTER 2021-01-28 17:02 | Outpatient (REF) | payer BC, SELFPAY ==
[2021-01-30 15:20] LABS: Chlamydia Result Negative (Negative); GC Result Negative (Negative)
== END 2021-01-28 17:03 | disposition home or self-care (01) ==
LOC: LBN 17:02
PROVIDERS: Visit Provider Physician Assistant Medical
DX: N72 Inflammatory disease of cervix uteri (principal)
CPT/HCPCS: 87491; 87591

== ENCOUNTER 2022-01-11 11:37 | Outpatient (REF) | payer BC, SELFPAY ==
[2022-01-13 11:23] LABS: COVID-19 RT-PCR UVMMC Result Negative (Negative)
== END 2022-01-11 11:38 | disposition home or self-care (01) ==
LOC: LBN 11:37
PROVIDERS: Visit Provider Nurse Practitioner Family
DX: Z20.822 Contact with and (suspected) exposure to COVID-19 (principal)
CPT/HCPCS: U0003